=== PATIENT | female | born 2000 | race Caucasian/White ===

== ENCOUNTER → 2018-08-26 | Outpatient (CLI) | payer OTHER | LOC: RAD 16:04 | DX: M25.532 Pain in left wrist (principal) ==

== ENCOUNTER 2020-02-14 12:04 | Emergency (ER) | payer OTHER ==
[~2020-02-14] VITALS: Ht 154.9 cm; Wt 63.5 kg
[2020-02-14 12:20] VITALS: BP 136/79
[2020-02-14 12:33] LABS: URINE BILIRUBIN NEGATIVE (Negative); URINE BLOOD 3+ (Negative); URINE GLUCOSE-RANDOM* NEGATIVE (Negative); URINE KETONES 1+ (Negative); URINE LEUKOCYTES-REFLEX TRACE (Negative); URINE NITRITE-REFLEX NEGATIVE (Negative); URINE PROTEIN (DIPSTICK) NEGATIVE (Negative); URINE SPECIFIC GRAVITY <= 1.005 (1.005-1.035); URINE UROBILINOGEN 0.2 E.U./dl (0.2-1.0)
[2020-02-14 12:34] LABS: URINE CLARITY SL HAZY; URINE COLOR LIGHT PINK
[2020-02-14 13:22] LABS: ABSOLUTE NEUTROPHILS 5.4 thou/uL (1.4-8.2); BASOPHILS 0.5 % (0.0-2.0); EOSINOPHILS 0.2 % (0.0-3.0); HEMATOCRIT 40.1 % (37.0-47.0); HEMOGLOBIN 13.6 gm/dL (12.0-15.0); MCH 29.2 pg (26.0-34.0); MCHC 33.8 g/dL (28.0-37.0); MCV 86.4 fL (80.0-100.0); MONOCYTES 4.6 % (1.0-8.0); PLATELET COUNT 258 thou/uL (150-400); POLYS 72.7 % (36.0-66.0); RBC 4.65 mil/uL (4.20-5.00); WBC 7.4 thou/uL (4.0-11.0)
[2020-02-14 13:24] LABS: BACTERIA-REFLEX 1-9 Few /HPF (None Seen); CASTS None Seen /LPF (None Seen); CRYSTALS None Seen /LPF (None Seen); SQUAMOUS 0-3 Few /LPF (0-3); URINE RBC 3-10 Few /HPF (0-2); URINE WBC-REFLEX 0-5 Rare /HPF (0-5)
[2020-02-14 13:31] LABS: CREATININE 0.7 mg/dL (0.6-1.0); POTASSIUM 3.8 mmol/L (3.5-5.1)
[2020-02-14 13:37] LABS: ALBUMIN 4.7 g/dL (3.4-5.0); TOTAL BILIRUBIN 0.5 mg/dL (0.2-1.0); TOTAL PROTEIN 8.1 g/dL (6.4-8.2)
--- NOTE | 2020-02-14 13:44 | EKG ---
[facility] [place] [address] ELECTROCARDIOGRAM REPORT Name: LINDA BROWN Room #: REG [facility].#: [id number] Admission: 02/14/20 Attend Phys: Discharge: Date of : 89 Report #: [id number] THIS REPORT FOR: cc: Be Badillo MD, Neal A. MD Santiago, Patrick MD [facility] ~ THIS REPORT FOR: //name// [facility] Test Date: 2020-02-14 Test Time: 12:22:08 Pat Name: LINDA BROWN Department: Room: Gender: F [employer]: [facility] : 2000 Requested By: Anette Mcdonald Order Number: [id number] MD: Festus Diaz Measurements Intervals [place] Rate: 121 P: 79 NM: 173 QRS: 71 QRSD: 69 T: -32 QT: 275 QTc: 390 Interpretive Statements Sinus tachycardia Consider right atrial enlargement Nonspecific T abnormalities, diffuse leads No previous ECG available for comparison Electronically Signed On 02-14-2020 13:43:56 CDT by Festus Diaz [email or web address] <ELECTRONICALLY SIGNED> By: Festus Diaz MD, FAC 02/14/20 1343 122 21 Festus Diaz MD, [facility] /EPI
[2020-02-14] MEDS ORDERED: LOPERAMIDE 2 MG2 M1 PO (15:14)
[2020-02-15] MEDS ORDERED: ONDANSETRON HCL4 M2 PO (21:28)
== END 2020-02-14 15:35 | disposition home or self-care (01) ==
LOC: ER 12:04
PROVIDERS: Physician Assistant
DX: E86.0 Dehydration (principal); R00.0 Tachycardia, unspecified; Z90.89 Acquired absence of other organs

== ENCOUNTER 2020-02-15 18:31 | Emergency (ER) | payer OTHER ==
[~2020-02-15] VITALS: Ht 154.9 cm; Wt 63.5 kg
[~2020-02-15 18:31] MED LIST: LOPERAMIDE 2 MG2 M1 PO
[2020-02-15 19:06] LABS: URINE BILIRUBIN NEGATIVE (Negative); URINE BLOOD 3+ (Negative); URINE CLARITY CLEAR; URINE COLOR YELLOW; URINE GLUCOSE-RANDOM* NEGATIVE (Negative); URINE KETONES TRACE (Negative); URINE LEUKOCYTES-REFLEX NEGATIVE (Negative); URINE NITRITE-REFLEX NEGATIVE (Negative); URINE PROTEIN (DIPSTICK) NEGATIVE (Negative); URINE SPECIFIC GRAVITY <= 1.005 (1.005-1.035); URINE UROBILINOGEN 0.2 E.U./dl (0.2-1.0)
[2020-02-15 19:08] LABS: ABSOLUTE NEUTROPHILS 5.5 thou/uL (1.4-8.2); BASOPHILS 0.7 % (0.0-2.0); EOSINOPHILS 0.3 % (0.0-3.0); HEMATOCRIT 41.9 % (37.0-47.0); HEMOGLOBIN 13.9 gm/dL (12.0-15.0); LYMPHOCYTES 26.8 % (24.0-44.0); MCH 28.9 pg (26.0-34.0); MCHC 33.1 g/dL (28.0-37.0); MCV 87.2 fL (80.0-100.0); MONOCYTES 6.7 % (1.0-8.0); PLATELET COUNT 297 thou/uL (150-400); POLYS 65.5 % (36.0-66.0); RDW 13.2 % (10.5-14.5); WBC 8.3 thou/uL (4.0-11.0)
[2020-02-15 19:17] LABS: BACTERIA-REFLEX 1-9 Few /HPF (None Seen); CRYSTALS None Seen /LPF (None Seen); SQUAMOUS 0-3 Few /LPF (0-3); URINE RBC 3-10 Few /HPF (0-2); URINE WBC-REFLEX None Seen /HPF (0-5)
[2020-02-15 19:18] LABS: CREATININE 0.7 mg/dL (0.6-1.0); POTASSIUM 3.5 mmol/L (3.5-5.1)
[2020-02-15 19:24] LABS: TOTAL BILIRUBIN 0.5 mg/dL (0.2-1.0); TOTAL PROTEIN 8.6 g/dL (6.4-8.2)
[2020-02-15] MEDS ORDERED: ONDANSETRON HCL4 M2 PO (21:28)
[2020-02-15 21:34] VITALS: BP 118/72
== END 2020-02-15 21:35 | disposition home or self-care (01) ==
LOC: ER 18:31
PROVIDERS: Physician Assistant
DX: R11.2 Nausea with vomiting, unspecified (principal); Z90.89 Acquired absence of other organs; Z79.899 Other long term (current) drug therapy